=== PATIENT | male | born 1960 | race Caucasian/White ===

== ENCOUNTER 2020-10-31 03:26 | Inpatient (IN) ==
[2020-10-31] MEDS ORDERED: ACETAMINOPHEN 500 MG TAB PO STA (04:00)
[2020-10-31] MEDS ORDERED: SODIUM CHLORIDE 0.9% 1000ML 1,000 ML IV ONE (04:00)
--- NOTE | 2020-10-31 04:29 | Emergency Department Note ---
History of Present Illness General Chief complaint: Fever Stated complaint: HIGH FEVER Time Seen by Provider: 10/31/20 03:33 Source: patient Mode of arrival: ambulatory Limitations: no limitations History of Present Illness This patient is a 59-year-old male who presents to the emergency department for evaluation of fevers x2 weeks. Patient states he has had daily fevers for the past 2 weeks. He has had headaches, body aches, cough, slight sore throat and a rash. The rash is all over his body and is itchy at times. He does states that the rash started after being stung by 3-4 bees. 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 He denies any known recent tick bites but [place] some time in [place]. He denies any urinary symptoms, neck pain/stiffness, abdominal pain or vomiting. He states his temperature has been as high as 106 F. He reports he has been using natural remedies for his symptoms. He denies any COVID-19 exposures. He denies any medical problems. 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 Current Living Situation: Spouse Feels Safe at Home: Yes Assistive Devices: None Review of Systems A total of 10 systems reviewed and were otherwise negative Physical Exam Vital Signs Vital Signs - 24 hr 10/31/20 03:30 10/31/20 03:41 10/31/20 03:43 Temperature 37.2 C 38.4 C H Temperature Source Temporal Artery Scan Oral Pulse Rate 124 H 117 H Pulse Rate [Brachial] 118 H Respiratory Rate 16 24 Blood Pressure 119/75 141/85 H Blood Pressure [Right Arm] 141/84 H Blood Pressure Mean 89 103 Blood Pressure Mean [Right Arm] 103 Pulse Oximetry 98 98 Oxygen Delivery Method Room Air Room Air Sepsis Recent Fever Within 48 Hours No Sepsis New/Unexplained Change in Mental Status No Sepsis Action Taken by Nursing No Action Required 10/31/20 04:56 10/31/20 05:07 10/31/20 05:17 Temperature 38.3 C H 37.5 C Temperature Source Oral Oral Pulse Rate 105 H Pulse Rate [Brachial] 101 H 98 H Respiratory Rate 21 24 Blood Pressure 117/70 Blood Pressure [Right Arm] 117/70 93/66 L Blood Pressure Mean 85 Blood Pressure Mean [Right Arm] 85 75 Pulse Oximetry 98 99 Oxygen Delivery Method Room Air Room Air Sepsis Recent Fever Within 48 Hours Sepsis New/Unexplained Change in Mental Status Sepsis Action Taken by Nursing 10/31/20 05:22 Temperature Temperature Source Pulse Rate 94 H Pulse Rate [Brachial] Respiratory Rate 13 Blood Pressure 105/64 Blood Pressure [Right Arm] Blood Pressure Mean 77 Blood Pressure Mean [Right Arm] Pulse Oximetry 96 Oxygen Delivery Method Room Air Sepsis Recent Fever Within 48 Hours Sepsis New/Unexplained Change in Mental Status Sepsis Action Taken by Nursing VITALS: Vitals are noted on the nurse's note and reviewed by myself. GENERAL: This is a 59-year-old male, in no acute distress, well-developed well- nourished. SKIN: Skin is warm and clammy. There are diffuse erythematous patches over the chest, abdomen, back and extremities. Some central clearing noted on some of th e lesions. EARS: External auditory canals clear, tympanic membranes pearly yepez without erythema or effusion bilaterally. EYES: Pupils equal round and reactive to light and accommodation. NOSE: Patent, turbinates without inflammation or discharge. No sinus tenderness. MOUTH: Mucous membranes moist. Tonsils are not enlarged. Pharynx without erythema or exudate. NECK: Supple without nuchal rigidity. No lymphadenopathy. HEART: Regular rate and rhythm without murmurs gallops or rubs. LUNGS: Clear to auscultation bilaterally without wheezes, rales or rhonchi. No retractions or accessory muscle use. ABDOMEN: Positive bowel sounds x 4. Soft, nontender to palpation. NEURO: Patient was alert and oriented to person place and time. Course Consultations Consultation #1: Dr. Baron - [facility] [place] Administered Medications Aspirin (Aspirin 81 Mg Ectab) 81 mg PO QAM [facility] Stop: 12/01/20 08:59 Last Admin: 11/01/20 08:21 Dose: 81 mg Documented by: [id number] Enoxaparin Sodium (Enoxaparin Inj 40 Mg/0.4 Ml Syr) 40 mg SQ Q24H [facility] Stop: 11/30/20 08:59 Last Admin: 11/01/20 08:21 Dose: 40 mg Documented by: [id number] Admin: 10/31/20 10:36 Dose: 40 mg Documented by: [id number] Sodium Chloride (Nss 1000ml) 1,000 mls @ 80 mls/hr IV .[id number] CJ Stop: 11/30/20 07:54 Last Admin: 11/01/20 08:20 Dose: 80 mls/hr Documented by: [id number] Infusion: 11/01/20 08:20 Dose: 80 mls/hr Documented by: [id number] Admin: 10/31/20 21:27 Dose: 80 mls/hr Documented by: [id number] Infusion: 10/31/20 21:27 Dose: 80 mls/hr Documented by: [id number] Admin: 10/31/20 09:07 Dose: 80 mls/hr Documented by: [id number] Doxycycline Hyclate 100 mg/ (Dextrose) 110 mls @ 50 mls/hr IV Q12H CJ Stop: 11/10/20 18:29 Last Infusion: 11/01/20 08:30 Dose: 0 mls/hr Documented by: [id number] Admin: 11/01/20 06:18 Dose: 50 mls/hr Documented by: [id number] Infusion: 10/31/20 19:53 Dose: 0 mls/hr Documented by: [id number] Admin: 10/31/20 17:42 Dose: 50 mls/hr Documented by: [id number] Famotidine 20 mg/ Syringe 5 mls @ 2.5 mls/min IV BID CJ Stop: 11/30/20 11:59 Last Admin: 11/01/20 08:20 Dose: 2.5 mls/min Documented by: [id number] Admin: 10/31/20 22:23 Dose: 2.5 mls/min Documented by: [id number] Admin: 10/31/20 12:26 Dose: 2.5 mls/min Documented by: [id number] Insulin Aspart (Insulin Aspart 100 Units/Ml 3 Ml Pen) 0 units SC ACHS CJ Stop: 11/30/20 07:54 Last Admin: 11/01/20 12:02 Dose: 3 units Documented by: [id number] Cosigned by: [id number] Admin: 11/01/20 08:21 Dose: 4 units Documented by: [id number] Cosigned by: [id number] Admin: 10/31/20 21:34 Dose: 1 units Documented by: [id number] Cosigned by: [id number] Admin: 10/31/20 17:43 Dose: 2 units Documented by: [id number] Cosigned by: [id number] Admin: 10/31/20 12:23 Dose: 3 units Documented by: [id number] Cosigned by: [id number] Admin: 10/31/20 10:45 Dose: Not Given Documented by: [id number] Insulin Glargine (Insulin Glargine Solostar 100 Units/Ml 3 Ml Pen) 10 units SC BID CJ Stop: 11/30/20 20:59 Last Admin: 11/01/20 08:22 Dose: 10 units Documented by: [id number] Cosigned by: [id number] Admin: 10/31/20 21:28 Dose: 10 units Documented by: [id number] Cosigned by: [id number] Discontinued Medications Acetaminophen (Acetaminophen 500 Mg Tab) 1,000 mg PO NOW STA Stop: 10/31/20 04:01 Last Admin: 10/31/20 04:22 Dose: 1,000 mg Documented by: [id number] Sodium Chloride (Nss 1000ml) 1,000 mls @ 999 mls/hr IV .Q1H1M ONE Stop: 10/31/20 05:00 Last Infusion: 10/31/20 05:23 Dose: 0 mls/hr Documented by: [id number] Admin: 10/31/20 04:22 Dose: 999 mls/hr Documented by: [id number] Piperacillin Sod/Tazobactam Sod (Zosyn) 4.5 gm in 120 mls @ 240 mls/hr IV NOW ONE Stop: 10/31/20 05:28 Last Infusion: 10/31/20 08:46 Dose: 0 mls/hr Documented by: [id number] Admin: 10/31/20 05:17 Dose: 240 mls/hr Documented by: [id number] Vancomycin HCl 2,000 mg/ (Sodium Chloride) 540 mls @ 200 mls/hr IV NOW ONE Stop: 10/31/20 07:40 Last Infusion: 10/31/20 08:46 Dose: 0 mls/hr Documented by: [id number] Admin: 10/31/20 05:46 Dose: 200 mls/hr Documented by: [id number] Sodium Chloride (Nss 1000ml) 2,000 mls @ 999 mls/hr IV .Q2H1M ONE Stop: 10/31/20 07:06 Last Infusion: 10/31/20 08:46 Dose: 0 mls/hr Documented by: [id number] Admin: 10/31/20 06:12 Dose: 999 mls/hr Documented by: [id number] Doxycycline Hyclate 100 mg/ (Dextrose) 110 mls @ 50 mls/hr IV NOW STA Stop: 10/31/20 08:14 Last Infusion: 10/31/20 08:46 Dose: 0 mls/hr Documented by: [id number] Admin: 10/31/20 06:24 Dose: 50 mls/hr Documented by: [id number] Vancomycin HCl 1,000 mg/ (Sodium Chloride) 270 mls @ 200 mls/hr IV Q12H CJ; Protocol Stop: 11/02/20 17:59 Last Admin: 10/31/20 19:23 Dose: Not Given Documented by: [id number] Piperacillin Sod/Tazobactam (Sod 3.375 gm/ Dextrose) 115 mls @ 28.75 mls/hr IV Q8H CJ; Protocol Stop: 11/02/20 09:59 Last Admin: 10/31/20 19:22 Dose: Not Given Documented by: [id number] Infusion: 10/31/20 14:48 Dose: 0 mls/hr Documented by: [id number] Admin: 10/31/20 10:34 Dose: 28.8 mls/hr Documented by: [id number] Critical Care Time Critical Care Time: Yes Total Critical Care Time: 40 I have personally greater than 40 minutes of critical care time in the direct management of this patient. This includes bedside care, interpretation of diagnostic studies, and testing, discussion with consultants, patient, and family members, and other required patient management activities. This 40 minutes is in excess of all separately billable procedures. Medical Decision Making Differential Diagnosis Viral syndrome, otitis, pharyngitis, pneumonia, influenza, meningitis, urinary tract infection, sepsis, bacteremia, as well as other pathologies. Home Medications Current Medication List: was personally reviewed by me Laboratory Data Attestation: I reviewed the patient's lab results. Result diagrams: 11/01/20 06:35 11/01/20 06:35 Lab Results 10/31/20 10/31/20 10/31/20 Range/Units 03:53 04:15 04:15 WBC 26.52 H (4.8-10.8) K/uL RBC 4.10 L (4.7-6.1) M/uL Hgb 10.9 L (14.0-18.0) g/dL Hct 33.1 L (42-52) % MCV 80.7 (80-100) fL MCH 26.6 (25-34) pg MCHC 32.9 (32-36) g/dL RDW Std Deviation 49.1 H (36.4-46.3) fL RDW Coeff of Atiya 16.6 H (11.5-14.5) % Plt Count 470 H (130-400) K/uL MPV 9.9 (7.4-10.4) fL Immature Gran % (Auto) 1.8 % Neut % (Auto) 90.8 % Lymph % (Auto) 5.1 % [place] % (Auto) 1.9 % Eos % (Auto) 0.3 % Baso % (Auto) 0.1 % Neut # (Auto) 24.09 H (1.4-6.5) K/uL Lymph # (Auto) 1.34 (1.2-3.4) K/uL [place] # (Auto) 0.51 (0.11-0.59) K/uL Eos # (Auto) 0.07 (0-0.5) K/uL Baso # (Auto) 0.03 (0-0.2) K/uL Immature Gran # (Auto) 0.48 H (0.00-0.02) K/uL Absolute Nucleated RBC 0.02 H (0-0) K/uL Nucleated RBC % (auto) 0.1 % Dohle Bodies 1+ Sodium (136-145) mmol/L Potassium (3.5-5.1) mmol/L Chloride (98-107) mmol/L Carbon Dioxide (21-32) mmol/L Anion Gap (3-11) BUN (7-18) mg/dl Creatinine (0.6-1.4) mg/dl Est Cr Clr Drug Dosing ml/min Est GFR ( Amer) ml/min Est GFR (Non-Af Amer) ml/min BUN/Creatinine Ratio (10-20) Glucose (70-99) mg/dl Lactate (0.4-2.0) mmol/L Calcium (8.5-10.1) mg/dl Total Bilirubin (0.2-1) mg/dl AST (15-37) U/L ALT (12-78) U/L Alkaline Phosphatase (45-117) U/L Total Creatine Kinase (39-308) U/L CK-MB (CK-2) (0.5-3.6) ng/ml CK/CKMB % Calc Troponin I (0-0.045) ng/ml Total Protein (6.4-8.2) gm/dl Albumin (3.4-5.0) gm/dl Globulin (2.5-4.0) gm/dl Albumin/Globulin Ratio (0.9-2) Procalcitonin 5.98 H (0-0.5) ng/ml Anaplasma Smear See Comment Lyme Disease IgG Ab Positive A (Negative) Lyme Disease IgM Ab Positive A (Negative) COVID-19 Eval Order SARS-CoV-2 (PCR) (Negative) E. chaffeensis IgG Ab Cancelled E. chaffeensis IgM Ab Cancelled E. chaffeensis Interp Cancelled E. chaffeensis Comment Cancelled 10/31/20 10/31/20 10/31/20 Range/Units 04:15 04:15 04:15 WBC (4.8-10.8) K/uL RBC (4.7-6.1) M/uL Hgb (14.0-18.0) g/dL Hct (42-52) % MCV (80-100) fL MCH (25-34) pg MCHC (32-36) g/dL RDW Std Deviation (36.4-46.3) fL RDW Coeff of Atiya (11.5-14.5) % Plt Count (130-400) K/uL MPV (7.4-10.4) fL Immature Gran % (Auto) % Neut % (Auto) % Lymph % (Auto) % [place] % (Auto) % Eos % (Auto) % Baso % (Auto) % Neut # (Auto) (1.4-6.5) K/uL Lymph # (Auto) (1.2-3.4) K/uL [place] # (Auto) (0.11-0.59) K/uL Eos # (Auto) (0-0.5) K/uL Baso # (Auto) (0-0.2) K/uL Immature Gran # (Auto) (0.00-0.02) K/uL Absolute Nucleated RBC (0-0) K/uL Nucleated RBC % (auto) % Dohle Bodies Sodium 133 L (136-145) mmol/L Potassium 4.5 (3.5-5.1) mmol/L Chloride 105 (98-107) mmol/L Carbon Dioxide 22 (21-32) mmol/L Anion Gap 6.0 (3-11) BUN 16 (7-18) mg/dl Creatinine 1.69 H (0.6-1.4) mg/dl Est Cr Clr Drug Dosing 53.8 ml/min Est GFR ( Amer) 49.7 ml/min Est GFR (Non-Af Amer) 42.9 ml/min BUN/Creatinine Ratio 9.5 L (10-20) Glucose 208 H (70-99) mg/dl Lactate 2.1 H* (0.4-2.0) mmol/L Calcium 8.0 L (8.5-10.1) mg/dl Total Bilirubin 0.8 (0.2-1) mg/dl AST 56 H (15-37) U/L ALT 94 H (12-78) U/L Alkaline Phosphatase 292 H (45-117) U/L Total Creatine Kinase 116 (39-308) U/L CK-MB (CK-2) < 1.0 (0.5-3.6) ng/ml CK/CKMB % Calc TNP Troponin I 0.183 H* (0-0.045) ng/ml Total Protein 7.1 (6.4-8.2) gm/dl Albumin 2.5 L (3.4-5.0) gm/dl Globulin 4.6 H (2.5-4.0) gm/dl Albumin/Globulin Ratio 0.5 L (0.9-2) Procalcitonin (0-0.5) ng/ml Anaplasma Smear Lyme Disease IgG Ab (Negative) Lyme Disease IgM Ab (Negative) COVID-19 Eval Order Covid19 at [facility] SARS-CoV-2 (PCR) (Negative) E. chaffeensis IgG Ab E. chaffeensis IgM Ab E. chaffeensis Interp E. chaffeensis Comment 10/31/20 10/31/20 Range/Units 04:15 06:10 WBC (4.8-10.8) K/uL RBC (4.7-6.1) M/uL Hgb (14.0-18.0) g/dL Hct (42-52) % MCV (80-100) fL MCH (25-34) pg MCHC (32-36) g/dL RDW Std Deviation (36.4-46.3) fL RDW Coeff of Atiya (11.5-14.5) % Plt Count (130-400) K/uL MPV (7.4-10.4) fL Immature Gran % (Auto) % Neut % (Auto) % Lymph % (Auto) % [place] % (Auto) % Eos % (Auto) % Baso % (Auto) % Neut # (Auto) (1.4-6.5) K/uL Lymph # (Auto) (1.2-3.4) K/uL [place] # (Auto) (0.11-0.59) K/uL Eos # (Auto) (0-0.5) K/uL Baso # (Auto) (0-0.2) K/uL Immature Gran # (Auto) (0.00-0.02) K/uL Absolute Nucleated RBC (0-0) K/uL Nucleated RBC % (auto) % Dohle Bodies Sodium (136-145) mmol/L Potassium (3.5-5.1) mmol/L Chloride (98-107) mmol/L Carbon Dioxide (21-32) mmol/L Anion Gap (3-11) BUN (7-18) mg/dl Creatinine (0.6-1.4) mg/dl Est Cr Clr Drug Dosing ml/min Est GFR ( Amer) ml/min Est GFR (Non-Af Amer) ml/min BUN/Creatinine Ratio (10-20) Glucose (70-99) mg/dl Lactate 2.0 (0.4-2.0) mmol/L Calcium (8.5-10.1) mg/dl Total Bilirubin (0.2-1) mg/dl AST (15-37) U/L ALT (12-78) U/L Alkaline Phosphatase (45-117) U/L Total Creatine Kinase (39-308) U/L CK-MB (CK-2) (0.5-3.6) ng/ml CK/CKMB % Calc Troponin I (0-0.045) ng/ml Total Protein (6.4-8.2) gm/dl Albumin (3.4-5.0) gm/dl Globulin (2.5-4.0) gm/dl Albumin/Globulin Ratio (0.9-2) Procalcitonin (0-0.5) ng/ml Anaplasma Smear Lyme Disease IgG Ab (Negative) Lyme Disease IgM Ab (Negative) COVID-19 Eval Order SARS-CoV-2 (PCR) NEGATIVE (Negative) E. chaffeensis IgG Ab E. chaffeensis IgM Ab E. chaffeensis Interp E. chaffeensis Comment Imaging Data Attestation: I personally reviewed and interpreted this imaging study as follows: My Impression: CHEST 1 VIEW: No pulmonary consolidation or pneumothorax. ECG Data Attestation: I personally reviewed and interpreted this ECG as follows: Indication: + tachycardia Rate (beats per minute): 82 Rhythm: + normal sinus ECG Intervals/blocks: + First degree AV block ECG ST segments: + Normal ST segments ECG Findings: no Q waves Change: no significant change MDM Narrative Continuous intake man: Order was placed for continuous intake man. Patient was placed on the intake man. Patient was noted to be in sinus tachycardia at an initial rate of 118 bpm. The patient is a 59-year-old male who presents today complaining of fever x 2 weeks. On arrival, patient is febrile, tachycardic and diaphoretic. Broad spectrum antibiotics and fluid resuscitation were ordered. He was noted to have a rash on his extremities and trunk, possibly due to sepsis or tickborne illness. Patient initially denied any tick bites but later told the hospitalist that he had been bit by a tick several weeks ago. Labs revealed a leukocytosis of 26,000, elevated LFTs, elevated troponin. Creatinine 1.6, baseline is unknown as patient does not get regular medical care. Lyme IgM and IgG found to be positive. UA and CXR did not show signs of infection. Case was discussed with the [facility] hospitalist for further evaluation and care. Impression & Plan Sepsis, Abnormal LFTs, Elevated troponin, Disseminated Lyme disease Discharge Plan Visit Data Chief Complaint: Fever Stated Complaint: HIGH FEVER ED Provider: Michael Altamirano ED Midlevel Provider: Joselin Ocasio Discharge Problem: Sepsis, Abnormal LFTs, Elevated troponin, Disseminated Lyme disease Patient Disposition: Admitted As Inpatient Discharge Instructions Interventions: ED Discharge Assessment Last Done: 10/31/20 08:27 Discharge Problem: Sepsis Qualifiers: Sepsis type: sepsis due to unspecified organism
[2020-10-31 04:32] LABS: Hematocrit (blood only) 33.1 % (42-52); Hemoglobin 10.9 g/dL (14.0-18.0); Mean Corpuscular Hemoglobin 26.6 pg (25-34); Mean Corpuscular Hgb Conc 32.9 g/dL (32-36); Mean Corpuscular Volume 80.7 fL (80-100); Mean Platelet Volume 9.9 fL (7.4-10.4); Nucleated RBC # (auto) 0.02 K/uL (0-0); Nucleated RBC % (auto) 0.1 %; Platelet Count 470 K/uL (130-400); RDW Coefficient of Variation 16.6 % (11.5-14.5); RDW Standard Deviation 49.1 fL (36.4-46.3); White Blood Count 26.52 K/uL (4.8-10.8)
[2020-10-31 04:47] LABS: Alanine Aminotransferase 94 U/L (12-78); Albumin Level 2.5 gm/dl (3.4-5.0); Aspartate Aminotransferase 56 U/L (15-37); BUN Creatinine Ratio 9.5 (10-20); Blood Urea Nitrogen 16 mg/dl (7-18); Carbon Dioxide 22 mmol/L (21-32); Chloride 105 mmol/L (98-107); Creatinine Clr Calc Pharmacy 53.8 ml/min; Est GFR (African American) 49.7 ml/min; Est GFR (Non-African American) 42.9 ml/min; Glucose 208 mg/dl (70-99); Potassium 4.5 mmol/L (3.5-5.1); Sodium 133 mmol/L (136-145)
[2020-10-31 04:50] LABS: Albumin Globulin Ratio 0.5 (0.9-2); Alkaline Phosphatase 292 U/L (45-117); Bilirubin,Total 0.8 mg/dl (0.2-1); Globulin 4.6 gm/dl (2.5-4.0); Total Protein 7.1 gm/dl (6.4-8.2)
[2020-10-31] MEDS ORDERED: VANCOMYCIN CONSULT ACTIVE PRN ×2 (04:59→07:55)
[2020-10-31] MEDS ORDERED: PIPERACILLIN/TAZOBACTAM 4.5 GM/120 ML BAG IV ONE (04:59)
[2020-10-31] MEDS ORDERED: PIPERACILL/TAZOBAC CONSULT ACTIVE PRN ×2 (04:59→07:55)
[2020-10-31] MEDS ORDERED: VANCOMYCIN HCL 2,000 MG in SODIUM CHLORIDE 0.9% 500 ML IV ONE (04:59)
[2020-10-31] MEDS ORDERED: SODIUM CHLORIDE 0.9% 1000ML 2,000 ML IV ONE (05:06)
[2020-10-31 05:09] LABS: Procalcitonin 5.98 ng/ml (0-0.5)
[2020-10-31 05:09] LABS: Basophils # (auto) 0.03 K/uL (0-0.2); Basophils % (auto) 0.1 %; Dohle Bodies 1+; Eosinophils # (auto) 0.07 K/uL (0-0.5); Eosinophils % (auto) 0.3 %; Immature Granulocytes # (auto) 0.48 K/uL (0.00-0.02); Immature Granulocytes % (auto) 1.8 %; Lymphocytes # (auto) 1.34 K/uL (1.2-3.4); Lymphocytes % (auto) 5.1 %; Monocytes # (auto) 0.51 K/uL (0.11-0.59); Monocytes % (auto) 1.9 %; Neutrophils # (auto) 24.09 K/uL (1.4-6.5); Neutrophils % (auto) 90.8 %
[2020-10-31 05:10] LABS: Creatine Kinase 116 U/L (39-308)
[2020-10-31 05:17] LABS: Creatine Kinase MB < 1.0 ng/ml (0.5-3.6); Troponin I 0.183 ng/ml (0-0.045)
[2020-10-31 05:33] LABS: Lyme Ab IgG w/WB Rflx Positive (Negative); Lyme Ab IgM w/WB Rflx Positive (Negative)
[2020-10-31] MEDS ORDERED: DOXYCYCLINE HYCLATE 100 MG in DEXTROSE 5% 100 ML IV STA (06:03)
--- NOTE | 2020-10-31 06:20 | History & Physical Report ---
Date of Service October 31, 2020 Assessment & Plan (1) Acute Lyme disease: Patient does report a tick bite about 1 month ago. Lyme IgM and IgG both positive in the ED this morning, with Western blot confirmation pending Anaplasmosis smear negative, with antibodies pending. We will also check ehrlichiosis antibodies Patient does report these things about 2 weeks ago prior to breaking out into a rash and symptoms with unclear contribution to the symptoms other than generalized sepsis. Concern with elevated troponin the patient may have Lyme endocarditis or myocarditis. He is already received vancomycin IV and Zosyn IV in the ED. Continue vancomycin IV per pharmacokinetic monitoring Zosyn 4.5 g IV every 8 hours Add doxycycline 100 mg IV every 12 hours Zofran 4 mg IV every 6 hours as needed Famotidine 20 mg IV every 12 hours Present on Admission?: Yes (2) Non-STEMI (non-ST elevated myocardial infarction): The patient will be admitted to telemetry for serial cardiac enzymes, serial EKG's, cardiac rhythm monitoring and a 2-D echocardiogram with Dopplers. Troponin 0.183 upon admission. Considerations: Type II supply demand mismatch [place], Lyme endocarditis, myocarditis, ACS, other Consult cardiology Present on Admission?: Yes (3) Acute kidney injury: Creatinine 1.69 upon admission, with no reference baseline. Receiving 3 L normal saline in ED per septic protocol. Follow-up normal saline at 80 mils per hour. Follow laboratories daily Present on Admission?: Yes (4) Abnormal LFTs: AST 56, ALT 94, alk phos 292. No abdominal symptoms Question secondary to overweight, undiagnosed diabetes, lipid abnormality, Lyme disease, anaplasmosis or other Follow laboratory serially Present on Admission?: Yes (5) Hyperglycemia: Glucose 208 upon admission. No known history of diabetes mellitus Place on Accu-Cheks before meals and at bedtime with NovoLog coverage per scale Check hemoglobin A1c Present on Admission?: Yes History of Present Illness Chief Complaint: The patient presents to the emergency department with 2 weeks of fevers, chills, sweats, generalized body aches, shortness of breath and rash all over his body Primary Care Provider: NO PCP The patient is a 59-year-old male with no significant past medical history who presents to the emergency department with symptoms as noted above. He does report a tick bite about 1 month ago, and he also reports being stung by 3-4 bees about 2 weeks ago. He reports that [place] He denies any recent travels or any sick exposures. He reports that his temperature at home was as high as 106 F. Laboratory work-up in the emergency department included the following significant labs: WBC 26.52, creatinine 1.69, glucose 208, lactate 2.1, AST 56, ALT 94, alk phos 292, troponin 0 0.183, albumin 2.5, Lyme IgM positive and IgG positive. COVID-19 negative. EKG showed sinus tachycardia at 106 bpm, with no acute ST-T changes. Chest x-ray was normal Past Med/Surg History Medical History No significant past medical history Social History Smoking Status: Never smoker Feels Safe at Home: Yes Review of Systems Review of Systems: The patient denies chest pain, palpitations, lower extremity swelling, nausea, vomiting, diarrhea , constipation, abdominal pain, pelvic pain, blood in urine or stool, dysuria, urinary frequency or urgency, memory loss, loss of consciousness, abnormal bruising or bleeding, imbalance, focal weakness, numbness or tingling in arms or legs, back or neck pain. The review of systems is otherwise negative other than for that already noted above, and at least 10 systems have been reviewed. Physical Exam Physical Exam: The patient is awake, alert and oriented 3, looks acutely ill with sweats, normocephalic and atraumatic, lying in bed and in mild acute distress. HEENT--PERRL, EOMI, mucous membranes and oropharynx dry. Neck--supple. No JVD. No bruits. Thyroid normal, trachea midline, no adenopathy. Heart--normal S1 and S2. No murmurs, rubs or gallops. Lungs--clear bilaterally, no respiratory distress, no accessory muscle use. Abdomen--normal bowel sounds and soft. Nontender. Nondistended. Obese Extremities--no cyanosis or clubbing. No edema. Dermatologic--diffuse erythematous rash over chest, abdomen, back and extremities with some central clearing on some of the lesions. Neurologic--cranial nerves II through XII grossly intact. Rheumatologic--normal range of motion. Psychiatric--normal affect. Results & Data Results & Data ([facility]) Vital Signs (Past 12 Hours) Vital Signs Temp Pulse Pulse Resp BP BP Pulse Ox 10/31/20 05:22 94 H 13 105/64 96 10/31/20 05:17 99.5 F 98 H 24 93/66 L 99 10/31/20 05:07 105 H 101 H 21 117/70 117/70 98 10/31/20 04:56 100.9 F H 10/31/20 03:43 117 H 118 H 24 141/85 H 141/84 H 98 10/31/20 03:41 101.1 F H 10/31/20 03:30 99.0 F 124 H 16 119/75 98 Laboratory Results Laboratory Results WBC 26.52 K/uL (4.8-10.8) H 10/31/20 04:15 RBC 4.10 M/uL (4.7-6.1) L 10/31/20 04:15 Hgb 10.9 g/dL (14.0-18.0) L 10/31/20 04:15 Hct 33.1 % (42-52) L 10/31/20 04:15 MCV 80.7 fL (80-100) 10/31/20 04:15 MCH 26.6 pg (25-34) 10/31/20 04:15 MCHC 32.9 g/dL (32-36) 10/31/20 04:15 RDW Std Deviation 49.1 fL (36.4-46.3) H 10/31/20 04:15 RDW Coeff of Atiya 16.6 % (11.5-14.5) H 10/31/20 04:15 Plt Count 470 K/uL (130-400) H 10/31/20 04:15 MPV 9.9 fL (7.4-10.4) 10/31/20 04:15 Immature Gran % (Auto) 1.8 % 10/31/20 04:15 Neut % (Auto) 90.8 % 10/31/20 04:15 Lymph % (Auto) 5.1 % 10/31/20 04:15 [place] % (Auto) 1.9 % 10/31/20 04:15 Eos % (Auto) 0.3 % 10/31/20 04:15 Baso % (Auto) 0.1 % 10/31/20 04:15 Neut # (Auto) 24.09 K/uL (1.4-6.5) H 10/31/20 04:15 Lymph # (Auto) 1.34 K/uL (1.2-3.4) 10/31/20 04:15 [place] # (Auto) 0.51 K/uL (0.11-0.59) 10/31/20 04:15 Eos # (Auto) 0.07 K/uL (0-0.5) 10/31/20 04:15 Baso # (Auto) 0.03 K/uL (0-0.2) 10/31/20 04:15 Immature Gran # (Auto) 0.48 K/uL (0.00-0.02) H 10/31/20 04:15 Absolute Nucleated RBC 0.02 K/uL (0-0) H 10/31/20 04:15 Nucleated RBC % (auto) 0.1 % 10/31/20 04:15 Dohle Bodies 1+ 10/31/20 04:15 Sodium 133 mmol/L (136-145) L 10/31/20 04:15 Potassium 4.5 mmol/L (3.5-5.1) 10/31/20 04:15 Chloride 105 mmol/L (98-107) 10/31/20 04:15 Carbon Dioxide 22 mmol/L (21-32) 10/31/20 04:15 Anion Gap 6.0 (3-11) 10/31/20 04:15 BUN 16 mg/dl (7-18) 10/31/20 04:15 Creatinine 1.69 mg/dl (0.6-1.4) H 10/31/20 04:15 Est Cr Clr Drug Dosing 53.8 ml/min 10/31/20 04:15 Est GFR ( Amer) 49.7 ml/min 10/31/20 04:15 Est GFR (Non-Af Amer) 42.9 ml/min 10/31/20 04:15 BUN/Creatinine Ratio 9.5 (10-20) L 10/31/20 04:15 Glucose 208 mg/dl (70-99) H 10/31/20 04:15 Lactate 2.1 mmol/L (0.4-2.0) H* 10/31/20 04:15 Calcium 8.0 mg/dl (8.5-10.1) L 10/31/20 04:15 Total Bilirubin 0.8 mg/dl (0.2-1) 10/31/20 04:15 AST 56 U/L (15-37) H 10/31/20 04:15 ALT 94 U/L (12-78) H 10/31/20 04:15 Alkaline Phosphatase 292 U/L (45-117) H 10/31/20 04:15 Total Creatine Kinase 116 U/L (39-308) 10/31/20 04:15 CK-MB (CK-2) < 1.0 ng/ml (0.5-3.6) 10/31/20 04:15 CK/CKMB % Calc TNP 10/31/20 04:15 Troponin I 0.183 ng/ml (0-0.045) H* 10/31/20 04:15 Total Protein 7.1 gm/dl (6.4-8.2) 10/31/20 04:15 Albumin 2.5 gm/dl (3.4-5.0) L 10/31/20 04:15 Globulin 4.6 gm/dl (2.5-4.0) H 10/31/20 04:15 Albumin/Globulin Ratio 0.5 (0.9-2) L 10/31/20 04:15 Procalcitonin 5.98 ng/ml (0-0.5) H 10/31/20 03:53 Anaplasma Smear See Comment 10/31/20 04:15 Lyme Disease IgG Ab Positive (Negative) A 10/31/20 03:53 Lyme Disease IgM Ab Positive (Negative) A 10/31/20 03:53 COVID-19 Eval Order Covid19 at [facility] 10/31/20 04:15 SARS-CoV-2 (PCR) NEGATIVE (Negative) 10/31/20 04:15 Code Status & VTE Plan Code Status Full code VTE Prophylaxis Plan VTE Prophylaxis will be ordered: Yes PG Care Time/CCT Total # of Minutes Spent Total Time Spent with Patient: Total time spent is greater than 50% in coordination of care (as documented) at patient's floor/unit and/or counseling patient: Coding Level of Care Code 07483 Initial Inpt Care Lvl 3 Diagnoses Acute Lyme disease A69.20 Non-STEMI (non-ST elevated myocardial infarction) I21.4 Acute kidney injury N17.9 Abnormal LFTs R94.5 Hyperglycemia R73.9
--- NOTE | 2020-10-31 07:31 | XRay Report ---
XR chest 1V portable HISTORY: Fever COMPARISON: None. FINDINGS: The cardiac silhouette is mildly enlarged. The lungs are clear. No pleural effusions. No pn eumothorax. IMPRESSION: Mild cardiomegaly. No focal lung consolidations to suggest pneumonia. ACT 112: Negative or not required by law. Electronically signed by: Ray De La Cruz M.D. 10/31/2020 7:30 AM
[2020-10-31] MEDS ORDERED: GLUCOSE 40% GEL 15 GM TUBE PO PRN (07:55)
[2020-10-31] MEDS ORDERED: PIPERACILLIN/TAZOBACTAM 4.5 GM in DEXTROSE 5% 100 ML IV SCH (07:55)
[2020-10-31] MEDS ORDERED: GLUCOSE 10 TABS/TUBE PO PRN (07:55)
[2020-10-31] MEDS ORDERED: ALBUT/IPRATROP 3MG/0.5MG NEB 3 ML VIAL NEB PRN (07:55)
[2020-10-31] MEDS ORDERED: CARBOHYDRATES FOR HYPOGLYCEMIA PO PRN (07:55)
[2020-10-31] MEDS ORDERED: ONDANSETRON INJ 2 MG/ML 2 ML VIAL IV PRN (07:55)
[2020-10-31] MEDS ORDERED: DEXTROSE 50% 50 ML SYRINGE IV PRN (07:55)
[2020-10-31] MEDS ORDERED: GLUCAGON FOR INJ 1 MG VIAL SQ PRN (07:55)
[2020-10-31] MEDS ORDERED: PATIENT'S ALLERGY INFO NEEDS ENTERED SCH (08:00)
[2020-10-31] MEDS: SODIUM CHLORIDE 0.9% 1000ML 1,000 ML IV SCH ×2 (09:07→21:27)
--- NOTE | 2020-10-31 09:54 | Cardiology Consultation ---
Date of Consultation October 31, 2020 Assessment & Plan (1) Elevated troponin: He does have an elevated troponin in a descending pattern with more pending. His echocardiogram shows no abnormality. He could have an enzyme leak just due to his acute presentation with a very high fever and tachycardia, however he could also have underlying heart disease which would aggravate a supply demand mismatch. (2) Cardiovascular event risk: He does have some risk factors for coronary disease including being overweight, potentially his age however he does not smoke and we do not have a cholesterol determination. I do not know that he has had 1 in some time. I am going to order that, based on his enzyme leak we will need to decide whether stress testing is indicated but I would certainly not do that now with his acute presentation. History of Present Illness Reason for Consultation: Elevated troponin Attending Physician: Neel Baron MD History of Present Illness This is a 59-year-old male who presents with fevers for several weeks as well as a widespread rash. 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 He also has exposure to a tick bite about a month ago and has a positive Lyme screen for IgG and IgM with confirmation pending. Evaluation included cardiac enzymes which were abnormal, his first troponin was 0.183, the second was 0.096 with more pending. Electrocardiogram shows sinus tachycardia without acute changes. His echocardiogram October 31, 2020 shows normal left ventricular function with no significant abnormality. He is feeling better at the time of my evaluation, he denies any cardiovascular symptoms. He does note that he had an emotional upset when his son in a motorcycle accident in August. He has not had chest discomfort, no change in his exertional ability, no heart failure symptoms. He has never had heart conditions that he is aware of. Allergies Allergy/AdvReac Type Severity Reaction Status Date / Time No Known Allergies Allergy Unverified 10/31/20 08:45 Patient History Medical History No significant past medical history Social History Smoking Status: Never smoker Hx Alcohol Use: No Hx Substance Use: No Preferred Language: Ecuadorean Communication Ability: Effective Land Planner Required: No Current Living Situation: Spouse Feels Safe at Home: Yes Safety Concerns: Feels Safe At This Time Assistive Devices: None Review of Systems Review of Systems: All systems reviewed & are unremarkable except as noted in HPI & below Physical Exam Physical Exam: Constitutional: Alert, cooperative and in no distress. HEENT: Unremarkable Neck: No jugular venous distention, carotid pulses are normal and equal bilaterally without bruits. Pulmonary: Clear to auscultation bilaterally. Cardiac: Regular rhythm with no murmur, gallop or rub. Abdomen: Soft, nontender with normal bowel sounds. Extremities: No edema. Distal pulses intact. Neurologic: No focal findings. Gait is steady. Skin: No rash, ecchymoses or petechiae. Results & Data ([facility]) Vital Signs (Past 12 Hours) Vital Signs Temp Pulse Pulse Resp BP BP Pulse Ox 10/31/20 08:27 37.2 C 20 93 10/31/20 07:55 37.2 C 88 20 110/64 93 10/31/20 05:22 94 H 13 105/64 96 10/31/20 05:17 37.5 C 98 H 24 93/66 L 99 10/31/20 05:07 105 H 101 H 21 117/70 117/70 98 10/31/20 04:56 38.3 C H 10/31/20 03:43 117 H 118 H 24 141/85 H 141/84 H 98 10/31/20 03:41 38.4 C H 10/31/20 03:30 37.2 C 124 H 16 119/75 98 Laboratory Results Cardiac Enzymes 10/31/20 Range/Units 04:15 AST 56 H (15-37) U/L CK-MB (CK-2) < 1.0 (0.5-3.6) ng/ml Troponin I 0.183 H* (0-0.045) ng/ml CBC 10/31/20 Range/Units 04:15 WBC 26.52 H (4.8-10.8) K/uL RBC 4.10 L (4.7-6.1) M/uL Hgb 10.9 L (14.0-18.0) g/dL Hct 33.1 L (42-52) % Plt Count 470 H (130-400) K/uL Neut # (Auto) 24.09 H (1.4-6.5) K/uL Lymph # (Auto) 1.34 (1.2-3.4) K/uL [place] # (Auto) 0.51 (0.11-0.59) K/uL Eos # (Auto) 0.07 (0-0.5) K/uL Baso # (Auto) 0.03 (0-0.2) K/uL Comprehensive Metabolic Panel 10/31/20 Range/Units 04:15 Sodium 133 L (136-145) mmol/L Potassium 4.5 (3.5-5.1) mmol/L Chloride 105 (98-107) mmol/L Carbon Dioxide 22 (21-32) mmol/L BUN 16 (7-18) mg/dl Creatinine 1.69 H (0.6-1.4) mg/dl Glucose 208 H (70-99) mg/dl Calcium 8.0 L (8.5-10.1) mg/dl AST 56 H (15-37) U/L ALT 94 H (12-78) U/L Alkaline Phosphatase 292 H (45-117) U/L Total Protein 7.1 (6.4-8.2) gm/dl Albumin 2.5 L (3.4-5.0) gm/dl Intake and Output 10/30/20 10/31/20 10/31/20 22:59 06:59 14:59 Intake Total 1000 / 1000 2770 / 2770 Output Total 550 / 550 Balance 1000 / 1000 2220 / 2220 Intake: IV 1000 / 1000 2770 / 2770 Doxycycline Hyclate 100 mg In 110 / 110 Dextrose 5% 100 ml @ 50 mls/hr IV NOW STA Rx#:[id number] Piperacillin/Tazobactam 4.5 gm 120 / 120 In 120 ml @ 240 mls/hr IV NOW ONE Rx#:[id number] Sodium Chloride 0.9% 1000ML 2, 1000 / 1000 2000 / 2000 000 ml @ 999 mls/hr IV .Q2H1M ONE Rx#:[id number] Vancomycin HCl 2,000 mg In 540 / 540 Sodium Chloride 0.9% 500 ml @ 200 mls/hr IV NOW ONE Rx#: [id number] Output: Urine 550 / 550 Other: Weight 101 kg 102.6 kg Weight Measurement Method Built in Bedscale Standing Scale Patient Weight 11/01/20 06:59 Weight 102.6 kg Diagnostic Findings Telemetry: Sinus rhythm and sinus tachycardia PG Care Time/CCT Total # of Minutes Spent Total Time Spent with Patient: Total time spent is greater than 50% in coordination of care (as documented) at patient's floor/unit and/or counseling patient: Coding Level of Care Code 74382 Inpt Consult Level 4 Diagnoses Elevated troponin R77.8 Cardiovascular event risk Z91.89
[2020-10-31 10:22] LABS: Appearance Urine Clear (Clear); Bilirubin Urine Negative (Negative); Blood Urine Negative (Negative); Color Urine Yellow; Glucose Urine UA Negative (Negative); Ketones Urine Negative (Negative); Leukocyte Esterase Urine Negative (Negative); Nitrite Urine Negative (Negative); Protein Urine Negative (Negative); Specific Gravity Urine 1.012 (1.000-1.030); Urobilinogen Urine Negative (Negative)
[2020-10-31] MEDS: PIPERACILLIN/TAZOBACTAM 3.375 GM in DEXTROSE 5% 100 ML IV SCH ×2 (10:34→19:22)
[2020-10-31] MEDS: ENOXAPARIN INJ 40 MG/0.4 ML SYR SQ SCH (10:36)
--- NOTE | 2020-10-31 10:37 | XCELERA ---
[id number]
[2020-10-31] MEDS: INSULIN ASPART 100 UNITS/ML 3 ML PEN SC SCH ×4 (10:45→21:34)
[2020-10-31] MEDS: FAMOTIDINE 20 MG in SYRINGE 3 ML IV SCH ×2 (12:26→22:23)
--- NOTE | 2020-10-31 14:47 | Electrocardiogram Report ---
Test Reason : Blood Pressure : / mmHG Vent. Rate : 106 BPM Atrial Rate : 106 BPM P-R Int : 174 ms QRS Dur : 090 ms QT Int : 336 ms P-R-T Axes : 035 -13 -11 degrees QTc Int : 446 ms Sinus tachycardia Otherwise normal ECG No previous ECGs available Confirmed by Butch Guardado ([id number]) on 10/31/2020 2:46:31 PM Referred By: REFERRED SELF Confirmed By:Butch Guardado
[2020-10-31] MEDS: DOXYCYCLINE HYCLATE 100 MG in DEXTROSE 5% 100 ML IV SCH (17:42)
[2020-10-31] MEDS ORDERED: VANCOMYCIN HCL 1,000 MG in SODIUM CHLORIDE 0.9% 250 ML IV SCH (18:00)
[2020-10-31] MEDS: INSULIN GLARGINE SOLOSTAR 100 UNITS/ML 3 ML PEN SC SCH (21:28)
--- NOTE | 2020-10-31 23:39 | Communication Note ---
Date of Service: October 31, 2020 S: Saw patient during the afternoon. He apparently had c/o blurry vision in both eyes to nursing staff. Upon arrival he was resting comfortably. at bedside. He states he "feels much better." Had tick bite 4 weeks ago. [place] Tele since admission wnl. O: VSS, now afebrile gen - NAD, nontoxic eyes - PERRL, EOMI, visual bolanos full by confrontation mouth - MMM heart - RRR, s1 s2 lungs - CTA b/l abd - soft NT ND BS+ ext - no edema skin - large, flat, erythematous patches / erythema migrans lesions; several h ave central clearing with erythematous borders torso, back, arms, upper legs affected; no involvement of feet, hands, face labs reviewed echo reviewed imaging reviewed A/P: sepsis 2nd to early disseminated Lyme Disease. ?MARU vs baseline renal dysfunction. hydrate then repeat labs am. hyperglycemia - uncertain if he is a diabetic. Await HbA1c; check bsgs ac/hs. Novolog SSI. abnormal LFTs - etiology?? anaplasmosis DNA sent. consider RUQ u/s. repeat LFTs am. +troponin - myocardial demand ischemia 2nd to sepsis - has already peaked and coming down. echo noted; appreciate cardiology assistance. updated at bedside. Augustine Burrows MD
[2020-11-01] MEDS: DOXYCYCLINE HYCLATE 100 MG in DEXTROSE 5% 100 ML IV SCH ×2 (06:18→18:02)
[2020-11-01 06:52] LABS: Basophils # (auto) 0.04 K/uL (0-0.2); Basophils % (auto) 0.2 %; Eosinophils # (auto) 0.29 K/uL (0-0.5); Eosinophils % (auto) 1.6 %; Hematocrit (blood only) 28.6 % (42-52); Hemoglobin 9.3 g/dL (14.0-18.0); Immature Granulocytes % (auto) 3.8 %; Lymphocytes # (auto) 2.23 K/uL (1.2-3.4); Lymphocytes % (auto) 12.1 %; Mean Corpuscular Hemoglobin 25.9 pg (25-34); Mean Corpuscular Hgb Conc 32.5 g/dL (32-36); Mean Corpuscular Volume 79.7 fL (80-100); Mean Platelet Volume 9.8 fL (7.4-10.4); Monocytes # (auto) 0.46 K/uL (0.11-0.59); Monocytes % (auto) 2.5 %; Neutrophils # (auto) 14.64 K/uL (1.4-6.5); Neutrophils % (auto) 79.8 %; Platelet Count 409 K/uL (130-400); RDW Coefficient of Variation 17.1 % (11.5-14.5); RDW Standard Deviation 49.7 fL (36.4-46.3); Red Blood Count 3.59 M/uL (4.7-6.1); White Blood Count 18.36 K/uL (4.8-10.8)
[2020-11-01 07:37] LABS: Albumin Globulin Ratio 0.5 (0.9-2); BUN Creatinine Ratio 11.5 (10-20); Bilirubin,Total 0.4 mg/dl (0.2-1); Calcium 7.9 mg/dl (8.5-10.1); Creatinine Clr Calc Pharmacy 77.4 ml/min; Est GFR (Non-African American) 65.5 ml/min; Magnesium 2.2 mg/dl (1.8-2.4); Potassium 4.3 mmol/L (3.5-5.1)
[2020-11-01 08:14] LABS: Estimated Average Glucose 137 mg/dl; Hemoglobin A1C 6.4 % (4.5-5.6)
[2020-11-01] MEDS: SODIUM CHLORIDE 0.9% 1000ML 1,000 ML IV SCH (08:20)
[2020-11-01] MEDS: FAMOTIDINE 20 MG in SYRINGE 3 ML IV SCH ×2 (08:20→20:14)
[2020-11-01] MEDS: ASPIRIN 81 MG ECTAB PO SCH (08:21)
[2020-11-01] MEDS: INSULIN ASPART 100 UNITS/ML 3 ML PEN SC SCH ×4 (08:21→20:10)
[2020-11-01] MEDS: ENOXAPARIN INJ 40 MG/0.4 ML SYR SQ SCH (08:21)
[2020-11-01] MEDS: INSULIN GLARGINE SOLOSTAR 100 UNITS/ML 3 ML PEN SC SCH ×2 (08:22→20:11)
[2020-11-01 12:38] LABS: Ferritin 231.6 ng/ml (8-388)
--- NOTE | 2020-11-01 14:39 | Cardiology Progress Note ---
Date of Service November 01, 2020 Assessment & Plan (1) Elevated troponin: He did present with an elevated troponin in a descending pattern. His echocardiogram shows no abnormality. He could have an enzyme leak just due to his acute presentation with a very high fever and tachycardia, however he could also have underlying heart disease which would aggravate a supply demand mismatch. I think it would be reasonable to perform a stress test, I would however wait until he is over his current illness and that could be done as an outpatient. (2) Cardiovascular event risk: He does have some risk factors for coronary disease including being overweight, potentially his age however he does not smoke and his cholesterol profile is unusual in that he has high triglycerides, a very good LDL but an HDL of only 10. This low HDL may be a cardiovascular risk although with a normal LDL that is not clear. Admission and Anticipated Discharge Date Admission Date: October 31, 2020 Subjective He tells me that he is feeling very well today and he wants to go home. No cardiovascular complaints. Physical Exam Physical Exam: Constitutional: Alert, cooperative and in no distress. HEENT: Unremarkable Neck: No jugular venous distention, carotid pulses are normal and equal bilaterally without bruits. Pulmonary: Clear to auscultation bilaterally. Cardiac: Regular rhythm with no murmur, gallop or rub. Abdomen: Soft, nontender with normal bowel sounds. Extremities: No edema. Distal pulses intact. Neurologic: No focal findings. Gait was not tested. Skin: No rash, ecchymoses or petechiae. Results & Data ([facility]) Vital Signs (Past 12 Hours) Vital Signs Temp Pulse Pulse Resp BP Pulse Ox 11/01/20 11:08 36.5 C 87 20 136/76 97 11/01/20 09:00 81 11/01/20 07:34 36.5 C 82 18 124/79 97 11/01/20 04:20 36.7 C 78 18 130/81 97 Laboratory Results Cardiac Enzymes 10/31/20 11/01/20 Range/Units 18:09 06:35 AST 23 (15-37) U/L Troponin I 0.039 (0-0.045) ng/ml Lipids 11/01/20 Range/Units 06:35 Triglycerides 234 H (0-150) mg/dl Cholesterol 98 (0-200) mg/dl HDL Cholesterol 10 mg/dl Cholesterol/HDL Ratio 10 CBC 11/01/20 Range/Units 06:35 WBC 18.36 H (4.8-10.8) K/uL RBC 3.59 L (4.7-6.1) M/uL Hgb 9.3 L (14.0-18.0) g/dL Hct 28.6 L (42-52) % Plt Count 409 H (130-400) K/uL Neut # (Auto) 14.64 H (1.4-6.5) K/uL Lymph # (Auto) 2.23 (1.2-3.4) K/uL [place] # (Auto) 0.46 (0.11-0.59) K/uL Eos # (Auto) 0.29 (0-0.5) K/uL Baso # (Auto) 0.04 (0-0.2) K/uL Comprehensive Metabolic Panel 11/01/20 Range/Units 06:35 Sodium 139 (136-145) mmol/L Potassium 4.3 (3.5-5.1) mmol/L Chloride 113 H (98-107) mmol/L Carbon Dioxide 24 (21-32) mmol/L BUN 14 (7-18) mg/dl Creatinine 1.19 D (0.6-1.4) mg/dl Glucose 140 H (70-99) mg/dl Calcium 7.9 L (8.5-10.1) mg/dl AST 23 (15-37) U/L ALT 58 (12-78) U/L Alkaline Phosphatase 175 H (45-117) U/L Total Protein 6.0 L (6.4-8.2) gm/dl Albumin 2.0 L (3.4-5.0) gm/dl Intake and Output 10/31/20 11/01/20 11/01/20 22:59 06:59 14:59 Intake Total 1096.667 / 4496.667 980.667 / 980.667 Output Total 1800 / 2350 Balance 1096.667 / 2146.667 -1800 / 2146.667 980.667 / 980.667 Intake: IV 1096.667 / 3981.667 980.667 / 980.667 Doxycycline Hyclate 100 mg In 110 / 110 110 / 110 Dextrose 5% 100 ml @ 50 mls/hr IV Q12H [facility] Rx#:[id number] Sodium Chloride 0.9% 1000ML 1, 986.667 / 986.667 870.667 / 870.667 000 ml @ 80 mls/hr IV .[id number] Rx#:[id number] Output: Urine 1800 / 2350 Other: Other Intake Source Sips Weight 103.7 kg Weight Measurement Method Standing Scale Diagnostic Findings Telemetry: Sinus rhythm with first-degree AV block, heart rate typically 80 to 90 bpm PG Care Time/CCT Total # of Minutes Spent Total Time Spent with Patient: Total time spent is greater than 50% in coordination of care (as documented) at patient's floor/unit and/or counseling patient: Coding Level of Care Code 97679 Subseq Hosp Care Lvl 2 Diagnoses Elevated troponin R77.8 Cardiovascular event risk Z91.89
--- NOTE | 2020-11-01 15:51 | Electrocardiogram Report ---
Test Reason : Blood Pressure : / mmHG Vent. Rate : 082 BPM Atrial Rate : 082 BPM P-R Int : 214 ms QRS Dur : 096 ms QT Int : 396 ms P-R-T Axes : 038 -17 -06 degrees QTc Int : 462 ms Sinus rhythm with 1st degree A-V block Otherwise normal ECG When compared with ECG of 31-OCT-2020 04:51, MT interval has increased Confirmed by Butch Guardado ([id number]) on 11/01/2020 3:50:51 PM Referred By: REFERRED SELF Confirmed By:Butch Guardado
--- NOTE | 2020-11-01 23:32 | Hospitalist Progress Note ---
Date of Service November 01, 2020 Assessment & Plan (1) Sepsis: 2nd to early disseminated Lyme Disease. blood cx's thus far negative. blood cx's only 24 hours old. keep patient hospitalized to follow his blood cx's given the marked procalcitonin & wbc count at admission. if cultures negative at 48 hours will d/c home. (2) Disseminated Lyme disease: widespread rash/widespread multiple Erythema migrans lesions are indicative of early disseminated disease. rash already improving with Rx (doxy). his entire clinical picture has improved overnight. continue doxy. can change IV to po today. given the severity of his illness would Rx for total of 21 days (rather than 14). NO EVIDENCE of carditis, nervous system involvement, etc. (3) Elevated troponin: likely myocardial demand ischemia in setting of sepsis/severe Lyme. doubt ACS. echo w/o WMA. he is physically active without any ischemic symptoms. [id number] -- cardiology advises outpatient stress test. will need to arrange. (4) Abnormal LFTs: presumably 2nd tick-borne disease. improving. trend. (5) Acute kidney injury: peak 1.6 now 1.1 2nd to sepsis-associated ATN bmp am can stop IVF tonight (6) DM w/o complication type II: a1c 6.4% hyperglycemia 2nd to infection/physical stress of illness appreciate DM educator consult at d/c consider once-daily metformin 500mg. or dietary control alone. while hospitalized cont basal-bolus insulin but can stop these at time of disc harge. (7) DVT prophylaxis: lovenox 40mg daily if blood cx's negative tomorrow can d/c home Admission and Anticipated Discharge Date Admission Date: October 31, 2020 Subjective patient feeling great rash is >50% or more resolved no fevers, chills, fatigue, weakness, or other flu-like symptoms eating 100% meals tele stable overnight no further vision blurriness hopeful for d/c home soon he is aware that he is borderline T2DM - seen by DM educator today further, I told him that cardiology is recommending outpatient stress test to him Review of Systems Constitutional: no fever, no chills, no body aches, no fatigue, no weakness and no anorexia Respiratory: no dyspnea Cardiovascular: no chest pain Gastrointestinal: no abdominal pain, no nausea and no vomiting Neurologic: no dizziness and no headache(s) Physical Exam Constitutional: well developed and well nourished; no acute distress and no altered mental status ENMT: external ear and nose normal, oropharynx normal Respiratory: normal respiratory effort, lungs clear to auscultation Cardiovascular: Rate/Rhythm: regular rate and regular rhythm Heart Sounds: normal S1 and normal S2; no murmur Vessels: posterior tibial pulses present and dorsalis pedis pulses present; no JVD Extremities: no edema Gastrointestinal (Abdomen): normal bowel sounds, soft, nontender, no hepatosplenomegaly Musculoskeletal: no cyanosis or clubbing, extremities motor strength 5/5 Skin: + rash (Numerous erythema migrans lesions IMPROVED today (t orso,back,arms)) Psychiatric: A+Ox3, euthymic affect Results & Data Results & Data ([facility]) Vital Signs (Past 12 Hours) Vital Signs Temp Pulse Pulse Resp BP Pulse Ox 11/01/20 19:18 36.4 C L 80 18 151/91 H 98 11/01/20 16:30 74 11/01/20 15:45 36.6 C 78 20 144/85 H 97 Laboratory Results Laboratory Results - last 24 hr 11/01/20 11/01/20 11/01/20 06:35 06:35 06:35 WBC 18.36 H RBC 3.59 L Hgb 9.3 L Hct 28.6 L MCV 79.7 L MCH 25.9 MCHC 32.5 RDW Std Deviation 49.7 H RDW Coeff of Atiya 17.1 H Plt Count 409 H MPV 9.8 Immature Gran % (Auto) 3.8 Neut % (Auto) 79.8 Lymph % (Auto) 12.1 [place] % (Auto) 2.5 Eos % (Auto) 1.6 Baso % (Auto) 0.2 Neut # (Auto) 14.64 H Lymph # (Auto) 2.23 [place] # (Auto) 0.46 Eos # (Auto) 0.29 Baso # (Auto) 0.04 Immature Gran # (Auto) 0.70 H Sodium 139 Potassium 4.3 Chloride 113 H Carbon Dioxide 24 Anion Gap 2.0 L BUN 14 Creatinine 1.19 D Est Cr Clr Drug Dosing 77.4 Est GFR ( Amer) 76.0 Est GFR (Non-Af Amer) 65.5 BUN/Creatinine Ratio 11.5 Glucose 140 H POC Glucose Estimat Average Glucose 137 Hemoglobin A1c 6.4 H Calcium 7.9 L Magnesium 2.2 Iron Transferrin Transferrin % Sat Ferritin Total Bilirubin 0.4 AST 23 ALT 58 Alkaline Phosphatase 175 H Total Protein 6.0 L Albumin 2.0 L Globulin 4.0 Albumin/Globulin Ratio 0.5 L Triglycerides 234 H Cholesterol 98 LDL Cholesterol, Calc 41 VLDL Cholesterol, Calc 47 HDL Cholesterol 10 Cholesterol/HDL Ratio 10 11/01/20 11/01/20 11/01/20 06:35 07:13 11:14 WBC RBC Hgb Hct MCV MCH MCHC RDW Std Deviation RDW Coeff of Atiya Plt Count MPV Immature Gran % (Auto) Neut % (Auto) Lymph % (Auto) [place] % (Auto) Eos % (Auto) Baso % (Auto) Neut # (Auto) Lymph # (Auto) [place] # (Auto) Eos # (Auto) Baso # (Auto) Immature Gran # (Auto) Sodium Potassium Chloride Carbon Dioxide Anion Gap BUN Creatinine Est Cr Clr Drug Dosing Est GFR ( Amer) Est GFR (Non-Af Amer) BUN/Creatinine Ratio Glucose POC Glucose 122 H 156 H Estimat Average Glucose Hemoglobin A1c Calcium Magnesium Iron 32 L Transferrin 147 L Transferrin % Sat 15 L Ferritin 231.6 Total Bilirubin AST ALT Alkaline Phosphatase Total Protein Albumin Globulin Albumin/Globulin Ratio Triglycerides Cholesterol LDL Cholesterol, Calc VLDL Cholesterol, Calc HDL Cholesterol Cholesterol/HDL Ratio 11/01/20 11/01/20 16:06 20:02 WBC RBC Hgb Hct MCV MCH MCHC RDW Std Deviation RDW Coeff of Atiya Plt Count MPV Immature Gran % (Auto) Neut % (Auto) Lymph % (Auto) [place] % (Auto) Eos % (Auto) Baso % (Auto) Neut # (Auto) Lymph # (Auto) [place] # (Auto) Eos # (Auto) Baso # (Auto) Immature Gran # (Auto) Sodium Potassium Chloride Carbon Dioxide Anion Gap BUN Creatinine Est Cr Clr Drug Dosing Est GFR ( Amer) Est GFR (Non-Af Amer) BUN/Creatinine Ratio Glucose POC Glucose 133 H 113 H Estimat Average Glucose Hemoglobin A1c Calcium Magnesium Iron Transferrin Transferrin % Sat Ferritin Total Bilirubin AST ALT Alkaline Phosphatase Total Protein Albumin Globulin Albumin/Globulin Ratio Triglycerides Cholesterol LDL Cholesterol, Calc VLDL Cholesterol, Calc HDL Cholesterol Cholesterol/HDL Ratio PG Care Time/CCT Total # of Minutes Spent Total Time Spent with Patient: Total time spent is greater than 50% in coordination of care (as documented) at patient's floor/unit and/or counseling patient: Coding Level of Care Code 33322 Subseq Hosp Care Lvl 2 Diagnoses Sepsis A41.9 Sepsis type: sepsis due to unspecified organism Disseminated Lyme disease A69.20 Elevated troponin R77.8 Abnormal LFTs R94.5 Acute kidney injury N17.9 DM w/o complication type II E11.9 DVT prophylaxis Z29.9 (1) Sepsis Sepsis type: sepsis due to unspecified organism
[2020-11-02 07:38] LABS: Hematocrit (blood only) 32.9 % (42-52); Hemoglobin 10.5 g/dL (14.0-18.0); Mean Corpuscular Hemoglobin 26.1 pg (25-34); Mean Corpuscular Hgb Conc 31.9 g/dL (32-36); Mean Corpuscular Volume 81.6 fL (80-100); Mean Platelet Volume 9.7 fL (7.4-10.4); Platelet Count 518 K/uL (130-400); RDW Coefficient of Variation 17.2 % (11.5-14.5); RDW Standard Deviation 51.6 fL (36.4-46.3); Red Blood Count 4.03 M/uL (4.7-6.1); White Blood Count 11.64 K/uL (4.8-10.8)
[2020-11-02] MEDS: ASPIRIN 81 MG ECTAB PO SCH (07:54)
[2020-11-02] MEDS: ENOXAPARIN INJ 40 MG/0.4 ML SYR SQ SCH (07:54)
[2020-11-02] MEDS: INSULIN ASPART 100 UNITS/ML 3 ML PEN SC SCH (07:57)
[2020-11-02 08:14] LABS: BUN Creatinine Ratio 11.5 (10-20); Calcium 8.5 mg/dl (8.5-10.1); Creatinine Clr Calc Pharmacy 78.8 ml/min; Est GFR (African American) 78.3 ml/min; Est GFR (Non-African American) 67.6 ml/min
[2020-11-02] MEDS: FAMOTIDINE 20 MG in SYRINGE 3 ML IV SCH (08:15)
[2020-11-02] MEDS: INSULIN GLARGINE SOLOSTAR 100 UNITS/ML 3 ML PEN SC SCH (08:15)
[2020-11-02 08:27] LABS: Basophils # (auto) 0.06 K/uL (0-0.2); Basophils % (auto) 0.5 %; Eosinophils # (auto) 0.42 K/uL (0-0.5); Eosinophils % (auto) 3.6 %; Immature Granulocytes # (auto) 1.03 K/uL (0.00-0.02); Immature Granulocytes % (auto) 8.8 %; Lymphocytes # (auto) 3.25 K/uL (1.2-3.4); Lymphocytes % (auto) 27.9 %; Monocytes # (auto) 0.57 K/uL (0.11-0.59); Monocytes % (auto) 4.9 %; Neutrophils # (auto) 6.31 K/uL (1.4-6.5); Neutrophils % (auto) 54.3 %
[2020-11-02] MEDS ORDERED: DOXYCYCLINE HYCLATE 100 MG CAP PO SCH (09:00)
--- NOTE | 2020-11-02 09:20 | Discharge Summary ---
Date of Service November 02, 2020 Admission HPI Per Admitting Provider The patient is a 59-year-old male with no significant past medical history who presents to the emergency department with symptoms as noted above. He does report a tick bite about 1 month ago, and he also reports being stung by 3-4 bees about 2 weeks ago. He reports that [place] He denies any recent travels or any sick exposures. He reports that his temperature at home was as high as 106 F. Laboratory work-up in the emergency department included the following significant labs: WBC 26.52, creatinine 1.69, glucose 208, lactate 2.1, AST 56, ALT 94, alk phos 292, troponin 0 0.183, albumin 2.5, Lyme IgM positive and IgG positive. COVID-19 negative. EKG showed sinus tachycardia at 106 bpm, with no acute ST-T changes. Chest x-ray was normal Principal Diagnosis disseminated early lyme disease Discharge Exam Constitutional: well developed and well nourished; no acute distress and no altered mental status ENMT: external ear and nose normal, oropharynx normal Respiratory: normal respiratory effort, lungs clear to auscultation Cardiovascular: Rate/Rhythm: regular rate and regular rhythm Heart Sounds: normal S1 and normal S2; no murmur Vessels: posterior tibial pulses present and dorsalis pedis pulses present; no JVD Extremities: no edema Gastrointestinal (Abdomen): normal bowel sounds, soft, nontender, no hepatosplenomegaly Musculoskeletal: no cyanosis or clubbing, extremities motor strength 5/5 Skin: + rash (Numerous erythema migrans lesions IMPROVED today (t orso,back,arms)) Psychiatric: A+Ox3, euthymic affect Discharge Data Allergies Allergy/AdvReac Type Severity Reaction Status Date / Time No Known Allergies Allergy Unverified 10/31/20 08:45 Consultations 10/31/20 06:42 Consult Cardiology Routine 10/31/20 06:46 ED Decision to Admit Stat Hospital Course (1) Sepsis: 2nd to early disseminated Lyme Disease.. marked procalcitonin & wbc count at admission. As cultures negative at 48 hours will d/c home. will discharge patient to complete 3 weeks of doxycycline. (2) Disseminated Lyme disease: widespread rash/widespread multiple Erythema migrans lesions are indicative of early disseminated disease. rash already improving with Rx (doxy). his entire clinical picture has improved overnight. continue doxy. can change IV to po today. given the severity of his illness would Rx for total of 21 days (rather than 14). NO EVIDENCE of carditis, nervous system involvement, etc. (3) Elevated troponin: likely myocardial demand ischemia in setting of sepsis/severe Lyme. doubt ACS. echo w/o WMA. he is physically active without any ischemic symptoms. [id number] -- cardiology advises outpatient stress test. will need to arrange. (4) Abnormal LFTs: presumably 2nd tick-borne disease. improving. trend. (5) Acute kidney injury: peak 1.6 now 1.1 2nd to sepsis-associated ATN bmp am can stop IVF tonight (6) DM w/o complication type II: a1c 6.4% hyperglycemia 2nd to infection/physical stress of illness appreciate DM educator consult at d/c consider once-daily metformin 500mg. or dietary control alone. while hospitalized cont basal-bolus insulin but can stop these at time of discharge. (7) DVT prophylaxis: lovenox 40mg daily if blood cx's negative tomorrow can d/c home Total Time Total Time Spent Total Time Spent (In Minutes): 32 Discharge Plan Discharge Items Patient Disposition: Home - Self-Care Reason For Visit: HIGH FEVER Discharge Diagnosis: Disseminated Lyme Disease Activity: Resume your previous activity Non-emergency contact: Primary Care Provider Call non-emergency contact if: you have any medication questions Follow-up/Referrals: PCP,NO [Primary Care Provider] - Diet: Carb Consistent or DM2 Addtl Attending Provider Instructions: You were treated for disseminated lyme disease. Doxycycline may cause your skin to be more sensitive to sunlight than it is normally. Exposure to sunlight, even for short periods of time, may cause skin rash, itching, redness or other discoloration of the skin, or a severe sunburn. LIMIT TIME IN SUNLIGHT WHILE ON DOXYCYCLINE. Use sun block as well. First dose tonight. Needs PCP followup in 1-2 weeks I think it would be reasonable to perform a stress test, I would however wait until your current illness is over and that could be done as an outpatient. Please followup with cardiology. Pending Studies at Discharge: No Stand-Alone Forms: [employer], Smoking Cessation Medications and DC Order Prescriptions: New aspirin 81 mg Tablet,Delayed Release (Dr/Ec) 81 mg PO QAM Qty: 30 RF: 0 doxycycline hyclate 100 mg tablet 100 mg PO BID 19 Days Qty: 38 RF: 0 Discharge Orders: Discharge Order (Routine); Ordered 11/02/20 Ordered By: Dontae Syed/Other Patient Handouts: Exercise for a Healthier Heart, 5 Steps for Eating Healthier, A1C Admission Data Admit Date/Time: 10/31/20 06:19 Attending Provider: Dontae Miranda Admit Provider: Neel Baron Primary Care Provider: PCP,NO Other Providers: Damian Raphael ; Neel Baron Other Interventions: Discharge Summary Assessment (RN) Last Done: 11/02/20 10:10 Coding Level of Care Code D/C Day Management >30 mins Diagnoses Sepsis A41.9 Sepsis type: sepsis due to unspecified organism Disseminated Lyme disease A69.20 Elevated troponin R77.8 Abnormal LFTs R94.5 Acute kidney injury N17.9 DM w/o complication type II E11.9 DVT prophylaxis Z29.9 Time Spent (min) 32
[2020-11-02 22:42] LABS: Ehrlichia chaff IgG Ab <1:64 (<1:64); Ehrlichia chaff IgM Ab <1:20 (<1:20)
--- NOTE | 2020-11-03 06:32 | Electrocardiogram Report ---
Test Reason : Blood Pressure : / mmHG Vent. Rate : 077 BPM Atrial Rate : 077 BPM P-R Int : 204 ms QRS Dur : 096 ms QT Int : 402 ms P-R-T Axes : 031 -17 -04 degrees QTc Int : 454 ms Normal sinus rhythm Normal ECG When compared with ECG of 01-NOV-2020 06:30, No significant change was found Confirmed by Damian Raphael ([id number]) on 11/03/2020 6:31:56 AM Referred By: REFERRED SELF Confirmed By:Damian Raphael
[2020-11-06 15:00] LABS: 18KDIGG Band REACTIVE; 23KDIGG Band NON-REACTIVE; 23KDIGM Band REACTIVE; 28KDIGG Band NON-REACTIVE; 30KDIGG Band NON-REACTIVE; 39KDIGG Band NON-REACTIVE; 39KDIGM Band REACTIVE; 41KDIGG Band REACTIVE; 41KDIGM Band REACTIVE; 45KDIGG Band NON-REACTIVE; 58KDIGG Band NON-REACTIVE; 66KDIGG Band NON-REACTIVE; 93KDIGG Band REACTIVE; Lyme Antibodies, WB IgG NEGATIVE (NEGATIVE); Lyme Antibodies, WB IgM POSITIVE (NEGATIVE)
== END 2020-11-02 10:42 | disposition home or self-care (01) | DRG 871 ==
LOC: ED 03:26 → SUATTDRO 06:19 → 2S 07:52